=== PATIENT | female | born 1990 | race African-American/Black ===

== ENCOUNTER 2019-01-10 07:55 | Emergency (ER) | payer MEDICAID ==
[~2019-01-10] VITALS: Ht 157.5 cm; Wt 89.8 kg
[~2019-01-10 07:55] MED LIST: PREN-145 OR
[2019-01-10 08:31] VITALS: BP 133/77
== END 2019-01-10 09:16 | disposition home or self-care (01) ==
LOC: ER 07:55
DX: J20.9 Acute bronchitis, unspecified (principal)

== ENCOUNTER 2019-01-22 10:04 | Emergency (ER) | payer MEDICAID ==
[~2019-01-22] VITALS: Ht 157.5 cm; Wt 86.2 kg
[2019-01-22 12:34] VITALS: BP 120/62
== END 2019-01-22 13:41 | disposition home or self-care (01) ==
LOC: ER 10:14
DX: J20.9 Acute bronchitis, unspecified (principal)
CPT/HCPCS: 71046

== ENCOUNTER 2019-03-28 10:38 | Emergency (ER) | payer MEDICAID ==
[~2019-03-28] VITALS: Ht 157.5 cm; Wt 90.3 kg
[2019-03-28 11:28] VITALS: BP 112/76
== END 2019-03-28 12:04 | disposition home or self-care (01) ==
LOC: ER 10:38
DX: J20.9 Acute bronchitis, unspecified (principal)

== ENCOUNTER 2019-03-30 11:10 | Emergency (ER) | payer MEDICAID ==
[~2019-03-30] VITALS: Ht 157.5 cm; Wt 90.3 kg
[2019-03-30 11:53] VITALS: BP 108/72
[2019-03-30] MEDS ORDERED: LIDOCAINE 1% HCL (LOCAL ANESTH.) INJ 20ML MDV IJ ONE (12:30)
[2019-03-30] MEDS ORDERED: IBUPROFEN 800 MG TAB PO ONE (13:15)
== END 2019-03-30 13:20 | disposition home or self-care (01) ==
LOC: ER 11:10
DX: L02.413 Cutaneous abscess of right upper limb (principal); H10.31 Unspecified acute conjunctivitis, right eye; J45.909 Unspecified asthma, uncomplicated; Z91.010 Allergy to peanuts
CPT/HCPCS: 10060; 99283; J2001

== ENCOUNTER 2019-04-01 09:55 | Emergency (ER) | payer MEDICAID ==
[~2019-04-01] VITALS: Ht 157.5 cm; Wt 90.3 kg
[2019-04-01 10:00] VITALS: BP 99/75
== END 2019-04-01 11:47 | disposition home or self-care (01) ==
LOC: ER 09:55
DX: Z48.01 Encounter for change or removal of surgical wound dressing (principal); J45.909 Unspecified asthma, uncomplicated; Z88.8 Allergy status to other drugs, medicaments and biological substances

== ENCOUNTER 2021-06-23 21:03 | Emergency (ER) | payer MEDICAID ==
[~2021-06-23] VITALS: Ht 157.5 cm; Wt 83.0 kg
[2021-06-23] MEDS ORDERED: IPRATROPIUM BROM 0.5 MG/2.5ML INH SOL NEB ONE ×2 (21:15→23:15)
[2021-06-23] MEDS ORDERED: ALBUTEROL SULF 2.5 MG/0.5ML(0.5%) NEB SOLN NEB ONE ×2 (21:15→23:15)
[2021-06-23] MEDS ORDERED: methylPREDNISolone SOD SUCC 125 MG/2 ML VL IV ONE (22:00)
[2021-06-23] MEDS ORDERED: ACETAMINOPHEN 325 MG TAB PO ONE (22:45)
[2021-06-23 22:51] LABS: Basophils # (auto) 0 10 ^3/uL (0-0.2); Basophils % (auto) 0.3 % (0.0-2.0); Eosinophils # (auto) 0.1 10 ^3/uL (0-0.8); Eosinophils % (auto) 1.4 % (0.0-7.0); Hemoglobin 12.3 g/dL (12.2-16.2); Lymphocytes # (auto) 0.6 10 ^3/uL (0.4-5.4); Lymphocytes % (auto) 5.5 % (10.0-50.0); Mean Corpuscular Hgb Conc. 34.1 g/dL (32.0-36.0); Mean Corpuscular Volume 73.2 fL (80.0-100.0); Monocytes # (auto) 0.9 10 ^3/uL (0-1.3); Monocytes % (auto) 8.4 % (0.0-12.0); Neutrophils # (auto) 8.6 10 ^3/uL (1.6-8.6); Neutrophils % (auto) 84.4 % (37.0-80.0); Nucleated Red Blood Cells % 0.1 %; Red Blood Cells 4.92 10^6/uL (4.0-5.20); Red Cell Distribution Width 18.5 % (11.8-14.3); White Blood Cell 10.2 10^3/uL (4.4-10.8)
[2021-06-23 23:10] LABS: Albumin 3.7 g/dL (3.4-5.0); BUN/Creatinine Ratio 7.7
[2021-06-23 23:13] LABS: Bilirubin, Total 0.3 mg/dL (0.2-1.0); Total Protein 8.2 g/dL (6.4-8.2)
[2021-06-23] MEDS ORDERED: PRED10TA PO (23:21)
[2021-06-23] MEDS ORDERED: OSEL75CA5 PO (23:21)
[2021-06-23 23:23] LABS: Potassium 2.9 mmol/L (3.5-5.1)
[2021-06-23] MEDS ORDERED: methylPREDNISolone SOD SUCC 125 MG/2 ML VL IM ONE (23:30)
[2021-06-23] MEDS ORDERED: POTASSIUM CHL 20 Meq TABLET PO ONE (23:30)
[2021-06-23 23:44] VITALS: BP 118/73
== END 2021-06-24 00:57 | disposition home or self-care (01) ==
LOC: ER 21:03
DX: J45.901 Unspecified asthma with (acute) exacerbation (principal); J10.1 Influenza due to other identified influenza virus with other respiratory manifestations; E87.6 Hypokalemia; Z20.822 Contact with and (suspected) exposure to COVID-19
CPT/HCPCS: 36415; 71045; 80053; 85025; 87426; 87804; 94640; 96372; 99284; J2930; J7644

== ENCOUNTER 2021-10-25 07:19 | Emergency (ER) | payer MEDICAID ==
[~2021-10-25] VITALS: Ht 162.6 cm; Wt 84.0 kg
[~2021-10-25 07:19] MED LIST changes: +OSEL75CA5 PO; +PRED10TA PO
[2021-10-25] MEDS ORDERED: methylPREDNISolone SOD SUCC 125 MG/2 ML VL IM ONE (08:00)
[2021-10-25] MEDS ORDERED: IPRATROPIUM BROM 0.5 MG/2.5ML INH SOL NEB ONE ×2 (08:00→09:00)
[2021-10-25] MEDS ORDERED: ALBUTEROL SULF 2.5 MG/0.5ML(0.5%) NEB SOLN NEB ONE ×2 (08:00→09:00)
[2021-10-25] MEDS ORDERED: ALBUAER3 IN (08:14)
[2021-10-25] MEDS ORDERED: PRED20TA2 PO (08:14)
[2021-10-25 08:59] VITALS: BP 135/81
== END 2021-10-25 11:50 | disposition home or self-care (01) ==
LOC: ER 07:19
DX: J45.901 Unspecified asthma with (acute) exacerbation (principal)
CPT/HCPCS: 71045; 94640; 96372; 99284; J2930; J7644

== ENCOUNTER 2022-10-17 22:57 | Emergency (ER) | payer MEDICAID ==
[~2022-10-17] VITALS: Ht 160 cm; Wt 81.0 kg
[~2022-10-17 22:57] MED LIST changes: +ALBUAER3 IN; +PRED20TA2 PO
[2022-10-17 23:41] LABS: Eosinophils # (auto) 0.5 10 ^3/uL (0-0.8); Eosinophils % (auto) 3.4 % (0.0-7.0); Hemoglobin 10.5 g/dL (12.2-16.2); Monocytes # (auto) 0.6 10 ^3/uL (0-1.3)
[2022-10-17 23:43] LABS: Basophils # (auto) 0.2 10 ^3/uL (0-0.2); Basophils % (auto) 1.2 % (0.0-2.0); Hematocrit 33.2 % (36.0-46.0); Lymphocytes # (auto) 4.4 10 ^3/uL (0.4-5.4); Lymphocytes % (auto) 30.7 % (10.0-50.0); Mean Corpuscular Hemoglobin 20.8 pg (28.0-32.0); Mean Corpuscular Hgb Conc. 31.7 g/dL (32.0-36.0); Mean Corpuscular Volume 65.6 fL (80.0-100.0); Monocytes % (auto) 4.2 % (0.0-12.0); Neutrophils # (auto) 8.6 10 ^3/uL (1.6-8.6); Neutrophils % (auto) 60.5 % (37.0-80.0); Red Blood Cells 5.06 10^6/uL (4.0-5.20); White Blood Cell 14.3 10^3/uL (4.4-10.8)
[2022-10-17 23:44] LABS: Urine Bacteria NONE SEEN /hpf (None Seen); Urine Blood 3+ /uL (Negative); Urine Clarity HAZY (Clear); Urine Color PINK (Yellow); Urine Protein, UAD 1+ (Negative); Urine Specific Gravity 1.016 (1.001-1.035); Urine Urobilinogen Normal (Negative); Urine WBC 50 /hpf (0 - 5); Urine pH 6.5 (5.0-8.0)
[2022-10-17 23:45] LABS: Red Cell Distribution Width 20.2 % (11.8-14.3)
[2022-10-18 00:01] LABS: Albumin 4.7 g/dL (3.2-4.8); Alkaline Phosphatase 63 U/L (46-116); Anion Gap 7.9 (5-15); Aspartate Aminotransferase 10 U/L (13-40); BUN/Creatinine Ratio 8.3 (10.0-20.0); Bilirubin, Total 0.4 mg/dL (0.2-1.0); Blood Urea Nitrogen 7 mg/dL (9-23); Calcium 9.7 mg/dL (8.7-10.4); Carbon Dioxide 21.1 mmol/L (20-30); Chloride 107 mmol/L (98-107); Glucose 92 mg/dL (74-106); Lipase 44 U/L (12-53); Potassium 3.4 mmol/L (3.5-5.1); Sodium 136 mmol/L (136-145); Total Protein 8.3 g/dL (5.7-8.2)
[2022-10-18 00:21] LABS: Alanine Aminotransferase 13 U/L (7-40)
[2022-10-18 01:15] LABS: Hypochromia Marked; Platelet Estimate Adequate
[2022-10-18] MEDS ORDERED: SODIUM CHLORIDE 0.9% 1,000 ML IV ONE (01:15)
[2022-10-18] MEDS ORDERED: CIPROFLOXACIN HCL 500 MG TAB PO ONE (01:15)
[2022-10-18] MEDS ORDERED: MORPHINE SULFATE 4 MG/ML SYR/VIAL IV ONE (01:15)
[2022-10-18] MEDS ORDERED: ONDANSETRON HCL 4 MG/2 ML VIAL IV ONE (01:15)
[2022-10-18 01:16] LABS: Anisocytosis Slight
[2022-10-18] MEDS ORDERED: HYDR-4902 PO (02:13)
[2022-10-18] MEDS ORDERED: CIPR-173 PO (02:13)
[2022-10-18] MEDS ORDERED: ZOFR4T PO (02:13)
[2022-10-18 02:30] VITALS: BP 143/78; PULSE 86; RESP 16; TEMP 98; O2SAT 99
== END 2022-10-18 04:05 | disposition home or self-care (01) ==
LOC: EDBD 22:57 → ER 22:57
DX: N39.0 Urinary tract infection, site not specified (principal); R10.2 Pelvic and perineal pain; J45.909 Unspecified asthma, uncomplicated
CPT/HCPCS: 36415; 74176; 80053; 81001; 83690; 84702; 85025; 96360; 99284; J7030

== ENCOUNTER 2023-02-15 12:41 | Emergency (ER) | payer MEDICAID ==
[~2023-02-15] VITALS: Ht 154.9 cm; Wt 70.0 kg
[~2023-02-15 12:41] MED LIST changes: +CIPR-173 PO; +HYDR-4902 PO; +ZOFR4T PO
[2023-02-15 13:24] VITALS: BP 127/70; PULSE 91; RESP 16; O2SAT 99
== END 2023-02-15 15:05 | disposition left against medical advice (07) ==
LOC: ER 12:41
DX: M79.605 Pain in left leg (principal); Z53.21 Procedure and treatment not carried out due to patient leaving prior to being seen by health care provider; V89.2XXA Person injured in unspecified motor-vehicle accident, traffic, initial encounter; Y93.I9 Activity, other involving external motion; Y92.89 Other specified places as the place of occurrence of the external cause; Y99.8 Other external cause status